=== PATIENT | male | born 1940 | race Caucasian/White ===

== ENCOUNTER 2020-12-07 10:58 | Emergency (ER) | payer MEDICARE ==
[~2020-12-07] VITALS: Ht 175.3 cm; Wt 81.8 kg
[2020-12-07] MEDS ORDERED: LIDOcaine 1% W/epiNEPHrine 1:200,000 10ml vial IJ ONE (12:15)
[2020-12-07] MEDS ORDERED: CEPH250T PO (12:18)
[2020-12-07 12:45] VITALS: BP 98/56
== END 2020-12-07 12:47 | disposition home or self-care (01) ==
LOC: ER 10:59
DX: L02.212 Cutaneous abscess of back [any part, except buttock and flank] (principal)
CPT/HCPCS: 10060; 99283

== ENCOUNTER 2021-04-14 08:31 | Emergency (ER) | payer MEDICARE, OTHER ==
[~2021-04-14] VITALS: Ht 170.2 cm; Wt 81.8 kg
[2021-04-14 08:32] VITALS: BP 145/82
[2021-04-14] MEDS ORDERED: ACET-1025 PO (09:04)
== END 2021-04-14 09:15 | disposition home or self-care (01) ==
LOC: ER 08:31
DX: R25.2 Cramp and spasm (principal); Z79.899 Other long term (current) drug therapy
CPT/HCPCS: 99283

== ENCOUNTER 2022-01-05 16:14 | Emergency (ER) | payer MEDICARE, OTHER ==
[~2022-01-05] VITALS: Ht 175.3 cm; Wt 86.4 kg
[2022-01-05 16:20] VITALS: BP 169/73
[2022-01-05] MEDS ORDERED: AZIT250T2 PO (17:50)
== END 2022-01-05 18:04 | disposition home or self-care (01) ==
LOC: ER 16:15
DX: R51.9 Headache, unspecified (principal); R05.9 Cough, unspecified; R53.1 Weakness; Z79.899 Other long term (current) drug therapy
CPT/HCPCS: 99283

== ENCOUNTER 2022-04-08 04:34 | Emergency (ER) | payer MEDICARE, OTHER ==
[~2022-04-08] VITALS: Ht 175.3 cm; Wt 81.8 kg
[2022-04-08 07:08] VITALS: BP 170/84
[2022-04-08] MEDS ORDERED: magnesium citrate 296ml oral solution PO STA (08:32)
--- NOTE | 2022-04-08 08:35 | NUR ---
mag citrate not available, instructed patient to purchase it from [employer].
[2022-04-09] MEDS ORDERED: AMOX-580 PO (10:59)
== END 2022-04-08 08:49 | disposition home or self-care (01) ==
LOC: ER 04:35
DX: R32 Unspecified urinary incontinence (principal); Z87.891 Personal history of nicotine dependence
CPT/HCPCS: 99284

== ENCOUNTER 2022-04-09 06:02 | Emergency (ER) | payer MEDICARE, OTHER ==
[~2022-04-09] VITALS: Ht 167.6 cm; Wt 86.4 kg
[2022-04-09 06:15] VITALS: BP 158/82
--- NOTE | 2022-04-09 07:44 | NUR ---
PT STANDING AT BEDSIDE, REQUESTING URINAL. URINAL GIVEN.
--- NOTE | 2022-04-09 09:28 | NUR ---
DR HUTTON REQUDESTED THAT PT'S UROLOGIST BE CONTACTED FOR CONSULT. DR NESSA BREWER IS PT'S UROLOGIST AND WAS CONTACTED. DR CONLEY IS NOT IN THE OFFICE UNTIL NEXT THURSDAY. DR HUTTON NOTIFIED
[2022-04-09 09:51] LABS: BASOPHILS % (AUTO) 0.5 % (0-1); EOSINOPHILS # (AUTO) 0.1 X10'3 (0-0.9); EOSINOPHILS % (AUTO) 2.3 % (0-6); HEMATOCRIT 39.2 % (42.0-52.0); HEMOGLOBIN 13.2 g/dl (14.0-17.9); LYMPHOCYTES # (AUTO) 0.4 X10'3 (1.1-4.8); LYMPHOCYTES % (AUTO) 6.8 % (21-51); MEAN CORPUSCULAR HEMOGLOBIN 29.2 PG (27.0-31.0); MEAN CORPUSCULAR HGB CONC 33.8 g/dL (33.0-36.5); MEAN CORPUSCULAR VOLUME 86.5 FL (78-98); MEAN PLATELET VOLUME 8.4 FL (7.4-10.4); MONOCYTES # (AUTO) 0.7 X10'3 (0-0.9); MONOCYTES % (AUTO) 11.8 % (2-12); NEUTROPHILS # (AUTO) 4.8 X10'3 (1.8-7.7); NEUTROPHILS % (AUTO) 78.6 % (42-75); PLATELET COUNT 236 X10'3 (140-440); RED BLOOD COUNT 4.53 X10'6 (4.70-6.10); RED CELL DISTRIBUTION WIDTH 15.2 % (11.5-14.5); WHITE BLOOD COUNT 6.1 X10'3 (4.5-11.0)
[2022-04-09 10:03] LABS: ALANINE AMINOTRANSFERASE 22 U/L (12-78); ALBUMIN 3.2 G/DL (3.4-5.0); ALBUMIN/GLOBULIN RATIO 0.9 (1.1-1.5); ALKALINE PHOSPHATASE 59 IU/L (46-116); ANION GAP 11 (8-16); ASPARTATE AMINO TRANSFERASE 22 U/L (10-37); BILIRUBIN,TOTAL 0.4 MG/DL (0.1-1.0); BLOOD UREA NITROGEN 27 MG/DL (7-18); BUN/CREATININE RATIO 20.8 (5.4-32.0); CALCIUM 9.1 MG/DL (8.5-10.1); CHLORIDE 105 MMOL/L (99-107); GLUCOSE 125 MG/DL (70-104); POTASSIUM 3.8 MMOL/L (3.5-5.1); SODIUM 142 MMOL/L (135-145); TOTAL CARBON DIOXIDE 25.8 MMOL/L (24-32); TOTAL PROTEIN 6.9 G/DL (6.4-8.2); eGFR 53 ML/MIN
[2022-04-09 10:32] LABS: CLARITY,URINE CLOUDY (Clear); COLOR,URINE YELLOW (Yellow); GLUCOSE, URINE NEGATIVE (Neg); KETONES,URINE 15 mg/dl (Neg); LEUKOCYTE ESTERASE ,URINE MODERATE (Neg); NITRITES, URINE NEGATIVE (Neg); OCCULT BLOOD,URINE LARGE (Neg); PROTEIN,URINE 100 mg/dl (Neg); UROBILINOGEN,URINE 0.2 E.U/dL (0.2-1.0)
[2022-04-09 10:40] LABS: UA COLLECTION TYPE URINAL; WBC,URINE TNTC /HPF (0-4)
[2022-04-09 10:41] LABS: BACTERIA,URINE 4+ /HPF (Neg); MUCUS STRANDS NONE SEEN /LPF (Neg); SQUAMOUS EPITHELIAL CELL,UR NONE SEEN /LPF (FEW)
[2022-04-09] MEDS ORDERED: amox tr/potassium clavulanate 875/125mg TAB PO ONE (10:50)
[2022-04-09] MEDS ORDERED: AMOX-580 PO (10:59)
== END 2022-04-09 11:32 | disposition home or self-care (01) ==
LOC: ER 06:02
DX: N39.0 Urinary tract infection, site not specified (principal); R31.9 Hematuria, unspecified
CPT/HCPCS: 36415; 80053; 81001; 85025; 87077; 87088; 87186; 99283

== ENCOUNTER 2022-08-22 12:22 | Emergency (ER) | payer MEDICARE, OTHER ==
[~2022-08-22] VITALS: Ht 175.3 cm; Wt 86.0 kg
[2022-08-22 12:27] VITALS: BP 150/63
== END 2022-08-22 14:49 | disposition home or self-care (01) ==
LOC: ER 12:23
DX: T83.098A Other mechanical complication of other urinary catheter, initial encounter (principal); R31.9 Hematuria, unspecified
CPT/HCPCS: 99284

== ENCOUNTER 2022-09-02 10:16 | Emergency (ER) | payer MEDICARE, OTHER ==
[~2022-09-02] VITALS: Ht 175.3 cm; Wt 81.8 kg
[2022-09-02 10:56] VITALS: BP 159/60
== END 2022-09-02 14:38 | disposition left against medical advice (07) ==
LOC: ER 10:17
DX: T85.9XXA Unspecified complication of internal prosthetic device, implant and graft, initial encounter (principal); Z53.21 Procedure and treatment not carried out due to patient leaving prior to being seen by health care provider
CPT/HCPCS: 99281; J7042

== ENCOUNTER 2022-09-14 08:13 | Emergency (ER) | payer MEDICARE, OTHER ==
[~2022-09-14] VITALS: Ht 175.3 cm; Wt 86.4 kg
[2022-09-14 08:19] VITALS: BP 166/72
== END 2022-09-14 10:58 | disposition home or self-care (01) ==
LOC: ER 08:13
DX: E11.65 Type 2 diabetes mellitus with hyperglycemia (principal)
CPT/HCPCS: 82948; 99283

== ENCOUNTER 2022-09-18 11:15 | Emergency (ER) | payer MEDICARE, OTHER ==
[~2022-09-18] VITALS: Ht 170.2 cm; Wt 79.6 kg
[2022-09-18 12:26] VITALS: BP 118/56
== END 2022-09-18 14:06 | disposition home or self-care (01) ==
LOC: ER 11:16
DX: T83.038A Leakage of other urinary catheter, initial encounter (principal); N39.498 Other specified urinary incontinence; E11.9 Type 2 diabetes mellitus without complications; Z79.899 Other long term (current) drug therapy
CPT/HCPCS: 99281

== ENCOUNTER 2022-09-29 15:22 | Emergency (ER) | payer MEDICARE, OTHER ==
[~2022-09-29] VITALS: Ht 175.3 cm; Wt 86.4 kg
[2022-09-29 16:04] VITALS: BP 140/76
== END 2022-09-29 20:11 | disposition home or self-care (01) ==
LOC: ER 15:23
DX: T83.038A Leakage of other urinary catheter, initial encounter (principal); E11.9 Type 2 diabetes mellitus without complications
CPT/HCPCS: 99281

== ENCOUNTER 2023-02-25 12:22 | Emergency (ER) | payer MEDICARE, OTHER ==
[~2023-02-25] VITALS: Ht 175.3 cm; Wt 72.0 kg
[2023-02-25 14:06] VITALS: BP 180/82; PULSE 64; RESP 14; TEMP 98.7; O2SAT 0
[2023-02-25] MEDS ORDERED: LIDOcaine 2% 10ml TOPICAL JELLY (Urojet) MM ONE (15:50)
[2023-02-25] MEDS ORDERED: LidoCAINE 2% Topical Jelly 11mL syringe MM ONE (15:55)
[2023-02-25 16:10] LABS: BILIRUBIN,URINE NEGATIVE (Neg); CLARITY,URINE SLIGHTLY CLOUDY (Clear); COLOR,URINE STRAW (Yellow); GLUCOSE, URINE NEGATIVE (Neg); KETONES,URINE NEGATIVE (Neg); LEUKOCYTE ESTERASE ,URINE NEGATIVE (Neg); NITRITES, URINE NEGATIVE (Neg); OCCULT BLOOD,URINE TRACE-INTACT (Neg); PROTEIN,URINE NEGATIVE (Neg); UROBILINOGEN,URINE 0.2 E.U/dL (0.2-1.0)
[2023-02-25 16:27] LABS: UA COLLECTION TYPE NON-SPECIFIED
[2023-02-25 16:30] LABS: BACTERIA,URINE 1+ /HPF (Neg); RBC,URINE 0-2 /HPF (0-2); SQUAMOUS EPITHELIAL CELL,UR FEW /LPF (FEW)
== END 2023-02-25 17:08 | disposition home or self-care (01) ==
LOC: ER 12:24
DX: T83.9XXA Unspecified complication of genitourinary prosthetic device, implant and graft, initial encounter (principal); E11.9 Type 2 diabetes mellitus without complications; Z98.890 Other specified postprocedural states
CPT/HCPCS: 81001; 87088; 99283; A4314; A4358